=== PATIENT | male | born 1945 | race Caucasian/White ===

== ENCOUNTER → 2022-07-21 | Outpatient (CLI) | payer OTHER, MEDICARE | END | disposition home or self-care (01) | LOC: RAH 09:59 | PROVIDERS: ATTEND Family Medicine | DX: I73.9 Peripheral vascular disease, unspecified (principal) | CPT/HCPCS: 93925 ==

== ENCOUNTER 2022-12-29 18:03 | Emergency (ER) | payer OTHER, MEDICARE ==
[~2022-12-29] VITALS: Ht 185.4 cm; Wt 85.7 kg
[2022-12-29] MEDS ORDERED: TETANUS/DIPHTHERIA TOXOID [ADULT] 0.5 ML VIAL IM ONE (19:53)
[2022-12-29] MEDS ORDERED: DIPH,PERTUSS(ACELL),TET VAC/PF 0.5 ML VIAL IM ONE (20:00)
[2022-12-29] MEDS ORDERED: LIDOCAINE HCL 1% 20 ML VIAL INJ SCH (20:00)
[2022-12-29] MEDS ORDERED: IBUP-1493 PO (20:50)
[2022-12-29] MEDS ORDERED: CEPH500T PO (20:50)
[2022-12-29 21:15] VITALS: BP 122/81
== END 2022-12-29 21:25 | disposition home or self-care (01) ==
LOC: EDH 18:03
DX: L72.3 Sebaceous cyst (principal); E11.9 Type 2 diabetes mellitus without complications; Z88.0 Allergy status to penicillin; Z79.899 Other long term (current) drug therapy
CPT/HCPCS: 10060; 90471; 90714; 90715